=== PATIENT | female | born 1945 | race Caucasian/White ===

== ENCOUNTER 2020-09-11 14:15 | Emergency (ER) | payer OTHER ==
[~2020-09-11] VITALS: Ht 149.9 cm; Wt 45.5 kg
[~2020-09-11 14:15] MED LIST: ACET-2247 PO; AMLO-257 PO; AMOX1TAB16 PO; ASPI-1450 PO; ATOR10TA84 PO; BETH5 PO; GLIP5 PO; ISOS1TAB2 PO; METF-960 PO
[2020-09-11 15:17] VITALS: BP 131/60
== END 2020-09-11 15:18 | disposition home or self-care (01) ==
LOC: EMS 14:15
DX: T83.098A Other mechanical complication of other urinary catheter, initial encounter (principal); E11.9 Type 2 diabetes mellitus without complications; I10 Essential (primary) hypertension; X58.XXXA Exposure to other specified factors, initial encounter; Y93.89 Activity, other specified; Y92.89 Other specified places as the place of occurrence of the external cause; Y99.8 Other external cause status
CPT/HCPCS: 51702; 99284; Z7502